=== PATIENT | female | born 1965 | race African-American/Black ===

== ENCOUNTER 2019-01-16 07:41 | Emergency (ER) | payer OTHER ==
[~2019-01-16] VITALS: Ht 162.6 cm; Wt 83.0 kg
[~2019-01-16 07:41] MED LIST: ALBU17AE26 IH
[2019-01-16 07:48] VITALS: BP_SYST 149
[2019-01-16 08:47] VITALS: BP_SYST 149
== END 2019-01-16 08:50 | disposition home or self-care (01) ==
LOC: SED 07:41
DX: L20.9 Atopic dermatitis, unspecified (principal); G89.29 Other chronic pain; M25.512 Pain in left shoulder; J45.909 Unspecified asthma, uncomplicated; Z79.899 Other long term (current) drug therapy; Z88.0 Allergy status to penicillin; Z88.5 Allergy status to narcotic agent; Z88.8 Allergy status to other drugs, medicaments and biological substances
CPT/HCPCS: 99283